=== PATIENT | male | born 1955 | race Caucasian/White ===

== ENCOUNTER 2019-10-22 09:46 | Day surgery (SDC) | payer OTHER ==
[~2019-10-22 09:46] MED LIST: Lactated Ringers 1,000 ML IV SCH; Sodium Chloride 0.9% 10 ML Syringe FLUSH PRN
[2019-10-22] MEDS ORDERED: fentaNYL 100 MCG/2 ML SDV ONE (10:41)
[2019-10-22] MEDS ORDERED: Propofol 200 MG/20 ML SDV ONE ×2 (10:41→12:01)
[2019-10-22 13:20] VITALS: BP 138/87; PULSE 57
--- NOTE | 2019-10-22 19:35 | OR ---
PRE-OPERATIVE DIAGNOSES: 1. History of colon polyps. Colon cancer screening. 2. Positive family history of colon cancer. Patient's last colonoscopy was 11/2015. He does have history of tubulovillous adenoma back in 2011. POST-OPERATIVE DIAGNOSES: 1. Ten small polyps removed all using cold forceps. a. 2 mm cecal polyp. b. 3 mm and 2 mm polyps at 95 cm. c. 2 mm and 4 mm polyps at 80 cm. d. 2 mm polyp x2 at 75 cm. e. 3 mm polyp at 70 cm. f. 4 mm polyp at 65 cm. g. 2 mm polyp at 55 cm. 2. Moderate left-sided diverticulosis. 3. Normal distal ileum. PROCEDURE: Colonoscopy with polypectomy x10 using cold forceps. ANESTHESIA: Monitored anesthesia care. BOWEL PREP: Good. Shaquille is a 64-year-old male, who was brought to the endoscopy suite after discussing risks and benefits of the procedure. Informed consent was obtained for conscious sedation and colonoscopy with or without biopsy and/or polypectomy. We also discussed possibility of missed lesions. Pre-procedure exam was unremarkable. IV, oxygen, and monitors were placed. The patient was placed in the left lateral decubitus position. Sedation was administered and a digital rectal exam was performed and unremarkable. Colonoscope was passed in the rectum, slowly advanced all the way to the cecum. Cecum was viewed and photographed. Ileocecal valve was intubated and distal ileum was normal in appearance. The cecum did reveal a 2 mm polyp which was removed using cold forceps. On the way out, a total of 9 additional polyps were removed as noted above. These were removed with cold forceps as well. Otherwise, the ascending colon was unremarkable. Transverse colon unremarkable. The descending and sigmoid colon revealed some moderate diverticulosis. Retroflexion was performed, rectal mucosa was unremarkable. Scope was removed. The patient tolerated the procedure well. The patient was monitored until that baseline status. Discharge instructions were reviewed and the patient was discharged in good condition. COMPLICATIONS: None. TOTAL TIME: 40 minutes. ESTIMATED BLOOD LOSS: 1 to 2 mL. RECOMMENDATIONS/FOLLOW-UP: We will await results of path report to determine ideal followup interval. I will have the patient hold his aspirin for 5 days to limit any chance of bleeding from the polypectomy sites. I would like to kindly thank Alireza Cobb MD, for this referral. DMB: 10/22/2019 14:36:40 MODL: 10/22/2019 19:22:45 /[id number]
== END 2019-10-22 13:50 | disposition home or self-care (01) ==
LOC: VM.SDS 09:46
PROVIDERS: ATTEND Family Medicine
DX: Z12.11 Encounter for screening for malignant neoplasm of colon (principal); D12.0 Benign neoplasm of cecum; D12.3 Benign neoplasm of transverse colon; D12.4 Benign neoplasm of descending colon; K57.30 Diverticulosis of large intestine without perforation or abscess without bleeding; I10 Essential (primary) hypertension; E78.00 Pure hypercholesterolemia, unspecified; I25.10 Atherosclerotic heart disease of native coronary artery without angina pectoris; I48.0 Paroxysmal atrial fibrillation; E66.9 Obesity, unspecified; Z68.37 Body mass index [BMI] 37.0-37.9, adult; Z79.82 Long term (current) use of aspirin; Z79.899 Other long term (current) drug therapy; Z86.010 Personal history of colon polyps; Z80.0 Family history of malignant neoplasm of digestive organs
CPT/HCPCS: 45380; J2704; J3010; J7120

== ENCOUNTER 2022-12-27 12:41 | Day surgery (SDC) | payer MEDICARE, OTHER ==
[2022-12-27] MEDS: Lactated Ringers 1,000 ML IV SCH (13:12)
[2022-12-27] MEDS ORDERED: fentaNYL 100 MCG/2 ML SDV ONE (14:07)
[2022-12-27] MEDS ORDERED: Propofol 200 MG/20 ML SDV ONE ×2 (14:07→15:01)
[2022-12-27 16:13] VITALS: BP 107/68; PULSE 54
== END 2022-12-27 16:35 | disposition home or self-care (01) ==
LOC: VM.SDS 12:41
PROVIDERS: ATTEND Family Medicine
DX: Z12.11 Encounter for screening for malignant neoplasm of colon (principal); D12.0 Benign neoplasm of cecum; I11.0 Hypertensive heart disease with heart failure; I50.9 Heart failure, unspecified; K57.30 Diverticulosis of large intestine without perforation or abscess without bleeding; E78.00 Pure hypercholesterolemia, unspecified; E66.9 Obesity, unspecified; I48.0 Paroxysmal atrial fibrillation; Z86.010 Personal history of colon polyps; Z98.890 Other specified postprocedural states; Z79.899 Other long term (current) drug therapy; Z91.048 Other nonmedicinal substance allergy status; Z68.36 Body mass index [BMI] 36.0-36.9, adult
CPT/HCPCS: 00811; 88305; J2704; J3010; J7120

== ENCOUNTER 2024-05-28 11:28 | Day surgery (SDC) | payer MEDICARE ==
[2024-05-28] MEDS: Lactated Ringers 1,000 ML IV SCH (11:45)
[2024-05-28] MEDS ORDERED: fentaNYL 100 MCG/2 ML SDV ONE (11:48)
[2024-05-28] MEDS ORDERED: Propofol 200 MG/20 ML SDV ONE ×5 (11:48→13:59)
[2024-05-28 14:55] VITALS: BP 113/75; PULSE 72
== END 2024-05-28 15:52 | disposition home or self-care (01) ==
LOC: VM.SDS 11:28
PROVIDERS: ATTEND Family Medicine
DX: Z12.11 Encounter for screening for malignant neoplasm of colon (principal); D12.0 Benign neoplasm of cecum; D12.2 Benign neoplasm of ascending colon; D12.3 Benign neoplasm of transverse colon; D12.4 Benign neoplasm of descending colon; K57.30 Diverticulosis of large intestine without perforation or abscess without bleeding; E78.00 Pure hypercholesterolemia, unspecified; I48.0 Paroxysmal atrial fibrillation; E66.01 Morbid (severe) obesity due to excess calories; I11.0 Hypertensive heart disease with heart failure; I50.9 Heart failure, unspecified; N30.00 Acute cystitis without hematuria; Z86.010 Personal history of colon polyps; Z79.899 Other long term (current) drug therapy
CPT/HCPCS: 00811; 88305; J2704; J3010; J7120